=== PATIENT | female | born 1935 | race Caucasian/White ===

== ENCOUNTER 2017-02-03 16:28 | Emergency (ER) | payer MEDICARE | END 2017-02-03 20:24 | disposition home or self-care (01) | LOC: D.ER 16:28 | DX: S16.1XXA Strain of muscle, fascia and tendon at neck level, initial encounter (principal); V89.2XXA Person injured in unspecified motor-vehicle accident, traffic, initial encounter; Y93.89 Activity, other specified; Y92.89 Other specified places as the place of occurrence of the external cause; S39.012A Strain of muscle, fascia and tendon of lower back, initial encounter; M25.552 Pain in left hip; M25.551 Pain in right hip ==

== ENCOUNTER 2018-05-10 19:53 | Emergency (ER) | payer MEDICARE, OTHER ==
[~2018-05-10] VITALS: Ht 167.6 cm; Wt 90.9 kg
[2018-05-10 20:08] VITALS: BP 139/61; Ht 167.6 cm; Wt 90.9 kg
[2018-05-10] MEDS ORDERED: FERROUS SULFAT140 MG PO (20:11)
[2018-05-10] MEDS ORDERED: JANUVIA100 MG PO (20:12)
[2018-05-10] MEDS ORDERED: BAYER CHEWABLE81 MG PO (20:12)
[2018-05-10] MEDS ORDERED: LISINOPRIL-HCTZ1 T13 PO (20:12)
[2018-05-10] MEDS ORDERED: GLUCOPHAGE1000 MG PO (20:12)
[2018-05-10] MEDS ORDERED: PRAVASTATIN SOD10 MG PO (20:13)
[2018-05-10] MEDS ORDERED: ACTOS15 MG PO (20:13)
== END 2018-05-10 21:32 | disposition home or self-care (01) ==
LOC: D.ER 19:53
DX: S80.12XA Contusion of left lower leg, initial encounter (principal); W22.8XXA Striking against or struck by other objects, initial encounter; Y93.89 Activity, other specified; Y92.22 Religious institution as the place of occurrence of the external cause; E11.9 Type 2 diabetes mellitus without complications; I10 Essential (primary) hypertension

== ENCOUNTER 2019-06-21 12:56 | Outpatient (CLI) | payer MEDICARE, OTHER ==
[~2019-06-21] VITALS: Ht 167.6 cm; Wt 84.1 kg
[~2019-06-21 12:56] MED LIST: ACTOS15 MG PO; BAYER CHEWABLE81 MG PO; FERROUS SULFAT140 MG PO; GLUCOPHAGE1000 MG PO; JANUVIA100 MG PO; LISINOPRIL-HCTZ1 T13 PO; PRAVASTATIN SOD10 MG PO
[2019-06-21 13:26] VITALS: BP 139/62; Ht 167.6 cm; Wt 84.1 kg
== END 2019-06-21 14:05 | disposition home or self-care (01) ==
LOC: D.OPS 12:56
PROVIDERS: ATTEND Emergency Medicine
DX: M81.0 Age-related osteoporosis without current pathological fracture (principal)

== ENCOUNTER 2019-08-23 16:21 | Emergency (ER) | payer MEDICARE, OTHER ==
[~2019-08-23] VITALS: Ht 165.1 cm; Wt 82.7 kg
[2019-08-23 17:19] VITALS: Ht 165.1 cm; Wt 82.7 kg
[2019-08-23 18:06] LABS: APPEARANCE CLEAR (CLEAR); BILIRUBIN NEGATIVE (NEGATIVE); COLOR STRAW (YELLOW); GLUCOSE NEGATIVE (NEGATIVE); KETONE NEGATIVE (NEGATIVE); NITRITE POSITIVE (NEGATIVE); PROTEIN NEGATIVE (NEGATIVE); SPECIFIC GRAVITY 1.005 (1.005-1.020); UROBILINOGEN NORMAL (NORMAL)
[2019-08-23 18:08] LABS: BACTERIA MANY /hpf (NEGATIVE); EPITHELIAL CELLS NSEEN /hpf (0-5); RED CELLS - URINE 0-5 /hpf (0-5); WHITE CELLS - URINE 0-5 /hpf (NEGATIVE)
[2019-08-23 18:21] LABS: BASOPHILS 0.2 % (0-2); EOSINOPHILS 0.7 % (0-7); HEMATOCRIT 34.5 % (36.0-48.0); HEMOGLOBIN 11.1 g/dL (12-16); IMMATURE GRANULOCYTES 0.6 % (0-5); LYMPHOCYTES 19.6 % (15-50); MCH 29.9 pg (26.0-34.0); MCHC 32.2 g/dL (31.0-37.0); MEAN PLATELET VOLUME 11.7 fL (7.4-10.4); NEUTROPHILS 69.9 % (40-80); PLATELET COUNT 149 10x3/uL (130-400); RBC 3.71 10x6/uL (4.00-5.40); RDW 13.1 % (11.5-14.5)
[2019-08-23 18:33] LABS: CALC OSMOLALITY 277 mosm/kg (275-300); CHLORIDE - SERUM 104 mmol/L (98-107); CREATININE - SERUM 1.1 mg/dL (0.6-1.3); GLUCOSE 120 mg/dL (74-106); POTASSIUM - SERUM 5.7 mmol/L (3.5-5.1); SODIUM 137 mmol/L (136-145); UREA NITROGEN 22 mg/dL (7-18); eGFR NON AFRICAN AMERICAN 50 mL/min (90-120)
[2019-08-23 18:42] LABS: ALBUMIN 3.8 g/dL (3.4-5.0); ALKALINE PHOSPHATASE 43 U/L (46-116); ALT (SGPT) 16 U/L (10-68); AMYLASE - SERUM 101 U/L (25-115); BILIRUBIN - TOTAL 0.26 mg/dL (0.2-1.3); LIPASE 171 U/L (73-393); PROTEIN - SERUM 7.2 g/dL (6.4-8.2)
[2019-08-23 18:44] LABS: TROPONIN-I < 0.017 ng/mL (0.000-0.060)
[2019-08-23] MEDS ORDERED: OMNICEF300 MG PO (19:04)
[2019-08-23] MEDS ORDERED: ANUSOL-HC25 MG RC (19:06)
[2019-08-23] MEDS ORDERED: COLACE100 MG PO (19:06)
[2019-08-23 20:32] VITALS: BP 148/63
== END 2019-08-23 20:32 | disposition home or self-care (01) ==
LOC: D.ER 16:21
PROVIDERS: Family Medicine
DX: K59.00 Constipation, unspecified (principal); K64.4 Residual hemorrhoidal skin tags; N39.0 Urinary tract infection, site not specified; I10 Essential (primary) hypertension; E11.9 Type 2 diabetes mellitus without complications; Z79.84 Long term (current) use of oral hypoglycemic drugs

== ENCOUNTER 2019-08-28 15:52 | Emergency (ER) | payer MEDICARE, OTHER ==
[~2019-08-28 15:52] MED LIST changes: +ANUSOL-HC25 MG RC; +COLACE100 MG PO; +OMNICEF300 MG PO
[2019-08-28 16:23] VITALS: Ht 165.1 cm
[2019-08-28] MEDS ORDERED: PROLIA INJ 660 MG/M1 SC (16:25)
[2019-08-28] MEDS ORDERED: OXYBUTYNIN CHLOR5 MG PO (16:26)
[2019-08-28] MEDS ORDERED: NORVASC5 MG PO (16:27)
[2019-08-28 17:07] LABS: BASOPHILS 0.3 % (0-2); EOSINOPHILS 1.5 % (0-7); HEMATOCRIT 34.3 % (36.0-48.0); HEMOGLOBIN 11.1 g/dL (12-16); IMMATURE GRANULOCYTES 0.2 % (0-5); LYMPHOCYTES 23.8 % (15-50); MCHC 32.4 g/dL (31.0-37.0); MCV 92.7 fL (80.0-100.0); MEAN PLATELET VOLUME 10.7 fL (7.4-10.4); MONOCYTES 11.7 % (2-11); NEUTROPHILS 62.5 % (40-80); RDW 12.7 % (11.5-14.5)
[2019-08-28 17:09] LABS: PLATELET COUNT 254 10x3/uL (130-400)
[2019-08-28 17:12] LABS: APPEARANCE CLEAR (CLEAR); BILIRUBIN NEGATIVE (NEGATIVE); COLOR YELLOW (YELLOW); GLUCOSE NEGATIVE (NEGATIVE); KETONE NEGATIVE (NEGATIVE); NITRITE NEGATIVE (NEGATIVE); PROTEIN NEGATIVE (NEGATIVE); UROBILINOGEN NORMAL (NORMAL)
[2019-08-28 17:33] LABS: ANION GAP 13.6 mmol/L (8-16); CARBON DIOXIDE 23.6 mmol/L (21.0-32.0); CREATININE - SERUM 1.3 mg/dL (0.6-1.3); POTASSIUM - SERUM 4.2 mmol/L (3.5-5.1)
[2019-08-28 17:35] LABS: ALBUMIN 3.5 g/dL (3.4-5.0); BILIRUBIN - TOTAL 0.22 mg/dL (0.2-1.3); PROTEIN - SERUM 6.8 g/dL (6.4-8.2)
[2019-08-28] MEDS ORDERED: MIRALAX17 GM PO (19:30)
[2019-08-28 19:35] VITALS: BP 132/78
== END 2019-08-28 19:35 | disposition home or self-care (01) ==
LOC: D.ER 15:52
PROVIDERS: Family Medicine
DX: K59.00 Constipation, unspecified (principal); R10.9 Unspecified abdominal pain; I10 Essential (primary) hypertension; E11.9 Type 2 diabetes mellitus without complications; Z79.84 Long term (current) use of oral hypoglycemic drugs; K64.4 Residual hemorrhoidal skin tags

== ENCOUNTER 2020-02-28 11:06 | Outpatient (CLI) | payer MEDICARE, OTHER ==
[~2020-02-28] VITALS: Ht 165.1 cm; Wt 83.2 kg
[~2020-02-28 11:06] MED LIST changes: +MIRALAX17 GM PO; +NORVASC5 MG PO; +OXYBUTYNIN CHLOR5 MG PO; +PROLIA INJ 660 MG/M1 SC
[2020-02-28 11:43] VITALS: BP 142/112; Ht 165.1 cm; Wt 83.2 kg
== END 2020-02-28 11:45 ==
LOC: D.OPS 11:06
PROVIDERS: ATTEND Emergency Medicine
DX: M81.0 Age-related osteoporosis without current pathological fracture (principal)